=== PATIENT | male | born 1950 | race Caucasian/White ===

== ENCOUNTER → 2018-05-14 | Outpatient (CLI) | payer OTHER | LOC: M.WC 04:17 | DX: E11.621 Type 2 diabetes mellitus with foot ulcer (principal); L97.521 Non-pressure chronic ulcer of other part of left foot limited to breakdown of skin; L84 Corns and callosities; E11.42 Type 2 diabetes mellitus with diabetic polyneuropathy; E78.5 Hyperlipidemia, unspecified; M20.22 Hallux rigidus, left foot; J44.9 Chronic obstructive pulmonary disease, unspecified; Z87.891 Personal history of nicotine dependence ==

== ENCOUNTER → 2018-05-21 | Outpatient (CLI) | payer OTHER | LOC: M.WC 05:42 | DX: E11.621 Type 2 diabetes mellitus with foot ulcer (principal); L97.521 Non-pressure chronic ulcer of other part of left foot limited to breakdown of skin; L84 Corns and callosities; M20.22 Hallux rigidus, left foot; E11.42 Type 2 diabetes mellitus with diabetic polyneuropathy; E78.5 Hyperlipidemia, unspecified; J44.9 Chronic obstructive pulmonary disease, unspecified; K21.9 Gastro-esophageal reflux disease without esophagitis; Z87.891 Personal history of nicotine dependence ==

== ENCOUNTER → 2018-11-19 | Outpatient (CLI) | payer OTHER | LOC: M.ULTRA 10:08 | DX: M79.89 Other specified soft tissue disorders (principal); R60.0 Localized edema; M79.662 Pain in left lower leg ==